=== PATIENT | male | born 1970 | race Caucasian/White ===

== ENCOUNTER 2018-05-13 15:49 | Emergency (ER) | payer SELFPAY ==
[~2018-05-13] VITALS: Ht 172.7 cm; Wt 104.5 kg
[2018-05-13 16:20] VITALS: Ht 172.7 cm; Wt 104.5 kg
[2018-05-13 20:12] VITALS: BP 156/92
== END 2018-05-13 20:17 | disposition home or self-care (01) ==
LOC: D.ER 15:49
DX: S01.01XA Laceration without foreign body of scalp, initial encounter (principal); W22.8XXA Striking against or struck by other objects, initial encounter; Y93.89 Activity, other specified; Y92.019 Unspecified place in single-family (private) house as the place of occurrence of the external cause